=== PATIENT | female | born 2005 | race Two or more races ===

== ENCOUNTER 2025-06-03 13:03 | Emergency (ER) | payer MEDICAID, OTHER ==
[~2025-06-03] VITALS: Ht 162.6 cm; Wt 106.3 kg
[2025-06-03 13:05] VITALS: BP 139/82; PULSE 75; RESP 13; TEMP 98.1; O2SAT 99
== END 2025-06-03 16:39 | disposition left against medical advice (07) ==
LOC: ER 13:03
DX: S61.452A Open bite of left hand, initial encounter (principal); Z53.21 Procedure and treatment not carried out due to patient leaving prior to being seen by health care provider; W54.0XXA Bitten by dog, initial encounter; Y93.89 Activity, other specified; Y92.89 Other specified places as the place of occurrence of the external cause; Y99.8 Other external cause status